=== PATIENT | male | born 1975 | race Caucasian/White ===

== ENCOUNTER 2022-12-27 20:31 | Emergency (ER) | payer BC | END 2022-12-27 22:43 | disposition home or self-care (01) | LOC: JD.ED 20:31 | DX: S09.93XA Unspecified injury of face, initial encounter (principal); F17.210 Nicotine dependence, cigarettes, uncomplicated; W51.XXXA Accidental striking against or bumped into by another person, initial encounter | CPT/HCPCS: 99282; 99283 ==